=== PATIENT | female | born 1945 | race Asian ===

== ENCOUNTER → 2017-06-07 | Outpatient (CLI) | payer MEDICARE, OTHER ==
[~2017-06-07] MED LIST: ASPI-630 PO; CALC600T PO; CETI-203 PO; FOLI1TAB5 PO; HYDR12.53 PO; METF500T4 PO; NIFE5POW MC; OMEG300C PO; RALO60TA PO; VIT1CAPS10 PO
[2017-06-07 09:55] LABS: BASO % 0 % (0-3); EOS # 0.4 x10^3/uL (0.0-0.7); EOS % 6 % (0-3); HEMATOCRIT 41.8 % (36.0-47.0); HEMOGLOBIN 14.2 g/dL (12.0-15.5); LYMPH # 2.3 x10^3/uL (1.0-4.8); LYMPH % 35 % (24-48); MEAN CORPUSCULAR HEMOGLOBIN 32 pg (25-35); MEAN CORPUSCULAR HGB CONC 34 g/dL (31-37); MEAN CORPUSCULAR VOLUME 94 fL (79-100); MONO # 0.4 x10^3/uL (0.0-1.1); MONO % 6 % (0-9); NEUT # 3.6 x10^3uL (1.8-7.7); NEUT % 53 % (31-73); PLATELET COUNT 210 x10^3/uL (140-400); RED BLOOD COUNT 4.44 x10^6/uL (3.50-5.40); RED CELL DISTRIBUTION WIDTH 12.4 % (11.5-14.5); WHITE BLOOD COUNT 6.8 x10^3/uL (4.0-11.0)
[2017-06-07 10:02] LABS: ALBUMIN 3.8 g/dL (3.4-5.0); CALCIUM 10.2 mg/dL (8.5-10.1); GFR 54.7; POTASSIUM 4.2 mmol/L (3.5-5.1); TOTAL BILIRUBIN 0.4 mg/dL (0.2-1.0); TOTAL PROTEIN 7.6 g/dL (6.4-8.2)
== END | disposition home or self-care (01) ==
LOC: LAB 09:13
PROVIDERS: ATTEND Internal Medicine Gastroenterology
DX: K74.60 Unspecified cirrhosis of liver (principal)
CPT/HCPCS: 36415; 80053; 82105; 85025; 85610

== ENCOUNTER → 2017-08-14 | Outpatient (CLI) | payer MEDICARE, OTHER ==
--- NOTE | 2017-08-14 12:20 | RAD ---
Pelvic ultrasound to include transabdominal and transvaginal imaging 08/14/2017 Clinical history: Vaginal bleeding. Technique: Using the distended urinary bladder as a sonographic window, a real-time ultrasound examination of the pelvis was performed. Additionally in an attempt better evaluate the adnexa, a transvaginal ultrasound study was performed. Multiple images were obtained. Findings: Comparison study is dated 09/09/2016. The uterus is not visualized and system with patient's history of a hysterectomy. Neither ovary is visualized consistent with the patient's history of a bilateral oophorectomy. The urinary bladder is within normal limits. No adnexal mass is seen. No free fluid is noted. Impression: Negative postoperative pelvic ultrasound.
== END | disposition home or self-care (01) ==
LOC: US 09:09
PROVIDERS: ATTEND Nurse Practitioner Family
DX: N93.9 Abnormal uterine and vaginal bleeding, unspecified (principal); Z90.710 Acquired absence of both cervix and uterus
CPT/HCPCS: 76830; 76856

== ENCOUNTER → 2017-08-28 | Outpatient (CLI) | payer MEDICARE, OTHER ==
[~2017-08-28] MED LIST changes: +IOHEXOL 240 MG/ML 50ML VIAL. ONE; +IOHEXOL 300 MG/ML 75 ML VIAL. IV ONE
[2017-08-28 08:14] LABS: CREATININE 0.9 mg/dL (0.6-1.0); GFR 61.7
--- NOTE | 2017-08-28 09:11 | RAD ---
CT abdomen and pelvis with oral and intravenous contrast 08/28/2017 Clinical indication: Vaginal bleeding. Comparison: Pelvic ultrasound 08/14/2017, CT abdomen 09/23/2014. Technique: Multiple CT images of the abdomen and pelvis were obtained following the intravenous administration of 75 mL Omnipaque 300. PQRS Compliance Statement: One or more of the following individualized dose reduction techniques were utilized for this examination: 1. Automated exposure control 2. Adjustment of the mA and/or kV according to patient size 3. Use of iterative reconstruction technique Findings: Heart size is normal. Mild subpleural scarring in the visualized lung bases. There is mild diffuse hepatic steatosis. There is no significant change in subcentimeter hypodensities in both lobes of the liver, largest in hepatic segment 2 measuring 0.6 cm series 2/image 10. Additional hypodensities seen at the junctions of segment 4A/2 series 2/image 11, segment 7 series 2/image 11 and segment 4A series 2/oh image 13. Gallbladder, spleen, adrenal glands, pancreas and kidneys are unremarkable. Abdominal aorta is normal in caliber with moderate aortoiliac calcified atheromatous disease. No retroperitoneal or mesenteric lymphadenopathy. Small and large bowel loops are normal in caliber without obstruction. The appendix is normal in appearance. No abdominal free fluid or pneumoperitoneum. There is mild thickening of the urinary bladder wall, asymmetrically greater anteriorly. No destructive osseous lesions. Impression: 1. Prior hysterectomy with no CT evidence to account for patient's reported vaginal bleeding. Clinical correlation is recommended. 2. Mild anterior urinary bladder wall thickening which may be due to cystitis. Correlation with urinalysis is recommended. If there is concern for urothelial carcinoma, cystoscopy could be performed for further evaluation. 3. Hepatic steatosis with a few stable subcentimeter hepatic hypodensities, likely benign given stability since 2014.
== END | disposition home or self-care (01) ==
LOC: CT 07:28
PROVIDERS: ATTEND Nurse Practitioner Family
DX: N93.8 Other specified abnormal uterine and vaginal bleeding (principal); K76.0 Fatty (change of) liver, not elsewhere classified; Z90.710 Acquired absence of both cervix and uterus
CPT/HCPCS: 36415; 74177; 82565; 84520; Q9966; Q9967

== ENCOUNTER → 2017-08-31 | Day surgery (SDC) | payer MEDICARE, OTHER ==
[~2017-08-31] MED LIST changes: -IOHEXOL 240 MG/ML 50ML VIAL. ONE; -IOHEXOL 300 MG/ML 75 ML VIAL. IV ONE; +IV RINGERS SOLUTION,LACTATED 1,000 ML IV ONE; +LIDOCAINE 2% PF Vial for OR 5 ML VIAL. ONE; +PROPOFOL 40 ML IV ONE
== END | disposition home or self-care (01) ==
LOC: SURG 07:39
PROVIDERS: ATTEND Internal Medicine Gastroenterology
DX: Z09 Encounter for follow-up examination after completed treatment for conditions other than malignant neoplasm (principal); Z86.010 Personal history of colon polyps; I10 Essential (primary) hypertension; E11.9 Type 2 diabetes mellitus without complications; E78.00 Pure hypercholesterolemia, unspecified; E07.9 Disorder of thyroid, unspecified; Z90.710 Acquired absence of both cervix and uterus; Z88.0 Allergy status to penicillin
CPT/HCPCS: 45378; 82947; J2704; J7120; J2001

== ENCOUNTER → 2017-12-01 | Outpatient (CLI) | payer MEDICARE, OTHER ==
[~2017-12-01] MED LIST changes: -IV RINGERS SOLUTION,LACTATED 1,000 ML IV ONE; -LIDOCAINE 2% PF Vial for OR 5 ML VIAL. ONE; -PROPOFOL 40 ML IV ONE
[2017-12-01 09:13] LABS: BASO # 0.1 x10^3/uL (0.0-0.2); BASO % 1 % (0-3); EOS # 0.6 x10^3/uL (0.0-0.7); EOS % 8 % (0-3); HEMATOCRIT 39.3 % (36.0-47.0); HEMOGLOBIN 13.3 g/dL (12.0-15.5); LYMPH # 3.1 x10^3/uL (1.0-4.8); LYMPH % 42 % (24-48); MEAN CORPUSCULAR HEMOGLOBIN 32 pg (25-35); MEAN CORPUSCULAR HGB CONC 34 g/dL (31-37); MEAN CORPUSCULAR VOLUME 95 fL (79-100); MONO # 0.4 x10^3/uL (0.0-1.1); MONO % 5 % (0-9); NEUT # 3.4 x10^3uL (1.8-7.7); NEUT % 45 % (31-73); PLATELET COUNT 216 x10^3/uL (140-400); RED BLOOD COUNT 4.16 x10^6/uL (3.50-5.40); RED CELL DISTRIBUTION WIDTH 12.7 % (11.5-14.5); WHITE BLOOD COUNT 7.5 x10^3/uL (4.0-11.0)
[2017-12-01 09:24] LABS: ALBUMIN 3.5 g/dL (3.4-5.0); ALBUMIN/GLOBULIN RATIO 0.9 (1.0-1.7); CALCIUM 10.2 mg/dL (8.5-10.1); CREATININE 0.9 mg/dL (0.6-1.0); GFR 61.7; POTASSIUM 3.6 mmol/L (3.5-5.1); TOTAL BILIRUBIN 0.6 mg/dL (0.2-1.0); TOTAL PROTEIN 7.6 g/dL (6.4-8.2)
--- NOTE | 2017-12-01 12:30 | RAD ---
Abdominal ultrasound, 12/01/2017: History: Hepatic cirrhosis The gallbladder is within normal limits in size. There is no sonographic evidence of cholelithiasis. The gallbladder de dios are not thickened. The common hepatic duct is of normal caliber. The hepatic echogenicity is generally increased, most commonly due to fatty change. The liver measures 16 cm in craniocaudad extent at the level of the right lobe. No hepatic mass is seen. The spleen is of normal size. The pancreatic body is unremarkable. Other portions of the pancreas were obscured by overlying bowel. The abdominal aorta is not dilated. The inferior vena cava is unremarkable. No free fluid is evident in the abdomen. IMPRESSION: 1. Increased hepatic echogenicity suggesting hepatic steatosis. 2. No acute abdominal abnormality is detected.
== END | disposition home or self-care (01) ==
LOC: US 07:26
PROVIDERS: ATTEND Internal Medicine Gastroenterology
DX: K74.60 Unspecified cirrhosis of liver (principal); I10 Essential (primary) hypertension; E11.9 Type 2 diabetes mellitus without complications
CPT/HCPCS: 36415; 76700; 80053; 82105; 85025; 85610

== ENCOUNTER → 2018-02-01 | Day surgery (SDC) | payer MEDICARE, OTHER ==
[~2018-02-01] MED LIST changes: +COLE625T12 PO; +IV RINGERS SOLUTION,LACTATED 1,000 ML IV SCH; +LIDOCAINE 1% PF 2 ML VIAL. ID PRN; +LOSA100T6 PO; -METF500T4 PO; +METF500T5 PO; +MORPHINE SULFATE 2 MG/ML DISP.SYRIN. IV PRN; +PANT40TA5 PO; +PROPOFOL 10,000 MCG/ML (20ML) VIAL IV ONE; +PROPOFOL 20 ML IV ONE
[2018-02-01 13:43] VITALS: BP 134/79
== END ==
LOC: SURG 11:38
PROVIDERS: ATTEND Internal Medicine Gastroenterology
DX: K29.70 Gastritis, unspecified, without bleeding (principal); K21.9 Gastro-esophageal reflux disease without esophagitis; K44.9 Diaphragmatic hernia without obstruction or gangrene; K74.60 Unspecified cirrhosis of liver; Z90.710 Acquired absence of both cervix and uterus; Z98.890 Other specified postprocedural states; Z98.49 Cataract extraction status, unspecified eye
CPT/HCPCS: 43239; J2704; J7120

== ENCOUNTER → 2018-06-12 | Outpatient (CLI) | payer MEDICARE, OTHER ==
[2018-02-01 13:43] VITALS: BP 134/79
[~2018-06-12] MED LIST changes: -IV RINGERS SOLUTION,LACTATED 1,000 ML IV SCH; -LIDOCAINE 1% PF 2 ML VIAL. ID PRN; -LOSA100T6 PO; +LOSA100T7 PO; +METF500T16 PO; -METF500T5 PO; -MORPHINE SULFATE 2 MG/ML DISP.SYRIN. IV PRN; -PROPOFOL 10,000 MCG/ML (20ML) VIAL IV ONE; -PROPOFOL 20 ML IV ONE
[2018-06-12 10:31] LABS: BASO % 0 % (0-3); EOS # 0.2 x10^3/uL (0.0-0.7); EOS % 4 % (0-3); HEMATOCRIT 37.2 % (36.0-47.0); HEMOGLOBIN 12.4 g/dL (12.0-15.5); LYMPH # 1.7 x10^3/uL (1.0-4.8); LYMPH % 32 % (24-48); MEAN CORPUSCULAR HEMOGLOBIN 31 pg (25-35); MEAN CORPUSCULAR HGB CONC 33 g/dL (31-37); MEAN CORPUSCULAR VOLUME 93 fL (79-100); MONO # 0.3 x10^3/uL (0.0-1.1); MONO % 6 % (0-9); NEUT # 3.1 x10^3uL (1.8-7.7); NEUT % 58 % (31-73); PLATELET COUNT 236 x10^3/uL (140-400); RED CELL DISTRIBUTION WIDTH 12.9 % (11.5-14.5); WHITE BLOOD COUNT 5.3 x10^3/uL (4.0-11.0)
--- NOTE | 2018-06-12 13:31 | RAD ---
Abdominal ultrasound, 06/12/2018: HISTORY: Hepatic cirrhosis The gallbladder is within normal limits in size. There is no sonographic evidence of cholelithiasis. The gallbladder de dios are not thickened. The common hepatic duct measures 6-7 mm which is at the upper limits of normal. The liver is enlarged measuring 20 cm in craniocaudad extent at the level the right lobe. It demonstrates increased echogenicity in a diffuse pattern most compatible with fatty change. No hepatic mass or intrahepatic bile duct dilatation is seen. The visualized portions of the pancreas and both kidneys are unremarkable. The spleen is of normal size. There is aortic calcific plaquing without evidence of aneurysm. The visualized portions of the inferior vena cava are unremarkable. No free fluid is evident in the abdomen. IMPRESSION: 1. Hepatomegaly with increased hepatic echogenicity compatible with hepatic steatosis. 2. The common hepatic duct is at the upper limits of normal in size without evidence of intrahepatic bile duct dilatation. Correlation with laboratory data is suggested in determining the significance of this finding. Electronically signed by: Gomez Pond MD (06/12/2018 1:28 PM) [facility], [place]
== END | disposition home or self-care (01) ==
LOC: US 07:43
PROVIDERS: ATTEND Internal Medicine Gastroenterology
DX: K74.60 Unspecified cirrhosis of liver (principal); R16.0 Hepatomegaly, not elsewhere classified; Z88.0 Allergy status to penicillin
CPT/HCPCS: 36415; 76700; 85025

== ENCOUNTER → 2019-01-14 | Outpatient (CLI) | payer MEDICARE, OTHER ==
[2018-02-01 13:43] VITALS: BP 134/79
[~2019-01-14] MED LIST changes: +CENTRUM CHEWAB1 EACH PO; -FOLI1TAB5 PO; -HYDR12.53 PO; +HYDR12.572 PO; +LOSA100T14 PO; -LOSA100T7 PO
--- NOTE | 2019-01-14 08:29 | RAD ---
Ultrasound of the abdomen 01/14/2019 CLINICAL HISTORY: [place]. TECHNIQUE: A real-time ultrasound examination of the abdomen was performed. Multiple images were obtained. FINDINGS: Comparison study is dated 06/12/2018. Additional comparison is made to a CT scan of the abdomen and pelvis dated 08/28/2017. The gallbladder is well-distended. No gallstones are visualized. The gallbladder wall thickness is within normal limits. No pericholecystic fluid is seen. THe common bile duct measures 5 mm in diameter which is within normal limits. The liver is mildly enlarged measuring 20.1 cm in length. Increased echogenicity of the liver parenchyma is seen consistent with fatty infiltration. A small area of focal fatty sparing is seen within the liver near the gallbladder which measures 2 cm in greatest diameter. This does not appear significantly changed. The visualized portions of pancreas, the spleen and both kidneys are within normal limits. Atherosclerotic calcification of the abdominal aorta is seen. The abdominal aorta tapers normally. The inferior vena cava is within normal limits. No free fluid is seen. IMPRESSION: Mild hepatomegaly with fatty infiltration of the liver, unchanged. No acute abnormality is seen. Electronically signed by: Nicho Porras MD (01/14/2019 8:26 AM) [email or web address]
== END | disposition home or self-care (01) ==
LOC: US 07:25
PROVIDERS: ATTEND Internal Medicine Gastroenterology
DX: K76.0 Fatty (change of) liver, not elsewhere classified (principal); I70.0 Atherosclerosis of aorta; R16.0 Hepatomegaly, not elsewhere classified
CPT/HCPCS: 76700

== ENCOUNTER → 2019-01-15 | Outpatient (CLI) | payer MEDICARE, OTHER ==
[2018-02-01 13:43] VITALS: BP 134/79
[2019-01-15 09:11] LABS: BASO # 0.1 x10^3/uL (0.0-0.2); BASO % 1 % (0-3); EOS # 0.4 x10^3/uL (0.0-0.7); EOS % 6 % (0-3); HEMATOCRIT 35.5 % (36.0-47.0); HEMOGLOBIN 11.4 g/dL (12.0-15.5); LYMPH # 2.6 x10^3/uL (1.0-4.8); LYMPH % 41 % (24-48); MEAN CORPUSCULAR HEMOGLOBIN 28 pg (25-35); MEAN CORPUSCULAR HGB CONC 32 g/dL (31-37); MEAN CORPUSCULAR VOLUME 86 fL (79-100); MONO # 0.5 x10^3/uL (0.0-1.1); MONO % 8 % (0-9); NEUT # 2.8 x10^3uL (1.8-7.7); NEUT % 44 % (31-73); PLATELET COUNT 297 x10^3/uL (140-400); RED BLOOD COUNT 4.12 x10^6/uL (3.50-5.40); RED CELL DISTRIBUTION WIDTH 14.6 % (11.5-14.5); WHITE BLOOD COUNT 6.3 x10^3/uL (4.0-11.0)
[2019-01-15 09:43] LABS: ALBUMIN 3.6 g/dL (3.4-5.0); ALBUMIN/GLOBULIN RATIO 0.9 (1.0-1.7); CALCIUM 9.4 mg/dL (8.5-10.1); CREATININE 1.1 mg/dL (0.6-1.0); GFR 48.8; POTASSIUM 4.4 mmol/L (3.5-5.1); TOTAL BILIRUBIN 0.5 mg/dL (0.2-1.0); TOTAL PROTEIN 7.7 g/dL (6.4-8.2)
== END | disposition home or self-care (01) ==
LOC: LAB 07:45
PROVIDERS: ATTEND Internal Medicine Gastroenterology
DX: K75.81 Nonalcoholic steatohepatitis (NASH) (principal); K74.60 Unspecified cirrhosis of liver
CPT/HCPCS: 36415; 80053; 82105; 85025; 85610

== ENCOUNTER → 2019-02-05 | Outpatient (CLI) | payer MEDICARE, OTHER ==
[2018-02-01 13:43] VITALS: BP 134/79
--- NOTE | 2019-02-05 12:27 | CARD ---
MR#: [id number] Date of Study: 02/05/2019 Ordering Physician: AASHISH MILLIGAN, Referring Physician: AASHISH MILLIGAN, Tech: Marisol Woods CECIL APPROVED REPORT EXAM: Two-dimensional and M-mode echocardiogram with Doppler and color Doppler. Other Information Quality : Good INDICATION Tachycardia 2D DIMENSIONS RVDd2.4 (2.9-3.5cm)Left Atrium(2D)3.4 (1.6-4.0cm) IVSd0.8 (0.7-1.1cm)Aortic Root(2D)2.4 (2.0-3.7cm) LVDd4.5 (3.9-5.9cm)LVOT Diameter2.0 (1.8-2.4cm) PWd0.8 (0.7-1.1cm)LVDs2.8 (2.5-4.0cm) FS (%) 38.0 %SV61.7 ml LVEF(%)60.0 (>50%) Aortic Valve AoV Peak Alexei.136.8cm/sAoV VTI21.2cm AO Peak GR.7.5mmHgLVOT Peak Alexei.128.7cm/s LVOT VTI 21.43cmAO Mean GR.4mmHg DAVID (VMAX)2.99en2HBV (VTI)3.03cm2 Mitral Valve MV E Yhndjtqg79.1cm/sMV DECEL XHFI487bu MV A Povfypon442.0cm/sE/A Ratio0.7 Pulmonary Vein S1 Kboeawye37.4cm/sD2 Ctdtzkeq90.9cm/s LEFT VENTRICLE The left ventricle is normal size. Proximal septal thickening is noted. The left ventricular systolic function is normal and the ejection fraction is within normal range. The Ejection Fraction is 60-65% . There is normal LV segmental wall motion. Transmitral Doppler flow pattern is Grade I-abnormal rela xation pattern. RIGHT VENTRICLE The right ventricle is normal size. The right ventricular systolic function is normal. ATRIA The left atrium size is normal. The right atrium size is normal. The interatrial septum is intact wit h no evidence for an atrial septal defect or patent foramen ovale as noted on 2-D or Doppler imaging. AORTIC VALVE The aortic valve is calcified but opens well. Doppler and Color Flow revealed no significant aortic r egurgitation. There is no significant aortic valvular stenosis. MITRAL VALVE The mitral valve is calcified but opens well. There is no evidence of mitral valve prolapse. There is no mitral valve stenosis. Doppler and Color Flow revealed no mitral valve regurgitation noted. TRICUSPID VALVE The tricuspid valve is normal in structure and function. Doppler and Color Flow revealed trace tricus pid regurgitation. There is no tricuspid valve stenosis. PULMONIC VALVE The pulmonic valve is not well visualized. Doppler and Color Flow revealed no pulmonic valvular regur gitation. There is no pulmonic valvular stenosis. GREAT VESSELS The aortic root is normal in size. The ascending aorta is normal in size. The IVC was not visualized. PERICARDIAL EFFUSION There is no evidence of significant pericardial effusion. Critical Notification Critical Value: No <Conclusion> The left ventricle is normal size. The left ventricular systolic function is normal and the ejection fraction is within normal range. The Ejection Fraction is 60-65%. There is no significant aortic valvular stenosis. Doppler and Color Flow revealed no significant aortic regurgitation. Doppler and Color Flow revealed no mitral valve regurgitation noted. Doppler and Color Flow revealed trace tricuspid regurgitation. Signed by : Matheus Sotelo MD Electronically Approved : 02/05/2019 12:27:17
== END | disposition home or self-care (01) ==
LOC: ECHO 10:18
PROVIDERS: ATTEND Family Medicine
DX: R01.2 Other cardiac sounds (principal); I70.0 Atherosclerosis of aorta; R00.8 Other abnormalities of heart beat
CPT/HCPCS: 93306

== ENCOUNTER → 2019-08-06 | Outpatient (CLI) | payer MEDICARE, OTHER ==
[2018-02-01 13:43] VITALS: BP 134/79
[2019-08-06 10:06] LABS: BASO # 0.1 x10^3/uL (0.0-0.2); BASO % 2 % (0-3); EOS # 0.2 x10^3/uL (0.0-0.7); EOS % 2 % (0-3); HEMOGLOBIN 10.6 g/dL (12.0-15.5); LYMPH % 29 % (24-48); MEAN CORPUSCULAR HEMOGLOBIN 25 pg (25-35); MEAN CORPUSCULAR HGB CONC 32 g/dL (31-37); MEAN CORPUSCULAR VOLUME 79 fL (79-100); MONO # 0.6 x10^3/uL (0.0-1.1); MONO % 8 % (0-9); NEUT % 58 % (31-73); PLATELET COUNT 303 x10^3/uL (140-400); RED BLOOD COUNT 4.19 x10^6/uL (3.50-5.40); RED CELL DISTRIBUTION WIDTH 15.6 % (11.5-14.5); WHITE BLOOD COUNT 6.9 x10^3/uL (4.0-11.0)
[2019-08-06 10:14] LABS: ALBUMIN 3.7 g/dL (3.4-5.0); ALBUMIN/GLOBULIN RATIO 0.8 (1.0-1.7); CALCIUM 9.1 mg/dL (8.5-10.1); CREATININE 1.1 mg/dL (0.6-1.0); GFR 48.7; POTASSIUM 4.4 mmol/L (3.5-5.1); TOTAL BILIRUBIN 0.5 mg/dL (0.2-1.0); TOTAL PROTEIN 8.3 g/dL (6.4-8.2)
--- NOTE | 2019-08-06 16:07 | RAD ---
ABDOMEN COMPLETE History: Cirrhosis Comparison: January 14, 2019 Findings: Multiple sonographic images of the abdomen are submitted. Gallbladder is present without intraluminal abnormality, wall thickening, pericholecystic fluid. There is diffuse coarsening of the hepatic echotexture, no focal hepatic mass demonstrated. Right lobe of the liver measured 16.8 cm longitudinal. Right kidney measured up to 10.5 x 4.3 x 4.7 cm, no hydronephrosis. Left kidney measured 10.5 x 5.15 4.1 cm, no hydronephrosis. Pancreas is not well-visualized on this exam due to bowel gas. There is limited segmental visualization of the inferior vena cava. Abdominal aortic caliber is within normal limits. Spleen measured up 8.6 cm, not enlarged. No free fluid is demonstrated. Impression: 1. There is diffuse coarsening of the hepatic echotexture most commonly due to steatosis although may be seen with other hepatocellular disease. Otherwise no other abnormality is demonstrated. Electronically signed by: Matthew Jean-Baptiste MD (08/06/2019 4:04 PM) [email or web address]
== END | disposition home or self-care (01) ==
LOC: US 09:04
PROVIDERS: ATTEND Internal Medicine Gastroenterology
DX: K74.60 Unspecified cirrhosis of liver (principal)
CPT/HCPCS: 36415; 76700; 80053; 82105; 85025; 85610

== ENCOUNTER → 2020-01-20 | Outpatient (CLI) | payer MEDICARE, OTHER ==
[2018-02-01 13:43] VITALS: BP 134/79
--- NOTE | 2020-01-20 08:51 | RAD ---
Right upper quadrant abdominal ultrasound Indication: Nonalcoholic steatohepatitis. Cirrhosis of liver. Comparison: Complete abdominal ultrasound 08/06/2019. Technique: Transabdominal ultrasound images are obtained. Findings: The pancreas is not well-visualized due to overlying bowel gas. Liver is mildly increased in echogenicity. Right hepatic lobe measures 17.4 cm. Portal flow is hepatopedal. Gallbladder has an unremarkable appearance. Common bile duct caliber is normal measuring 4 mm in diameter. The right kidney measures 10.5 cm in length. There is no hydronephrosis. IVC is unremarkable. IMPRESSION: The liver is mildly increased in echogenicity. Common etiology is fatty infiltration. Electronically signed by: Ervin Liu MD (01/20/2020 8:48 AM) [id number]
[2020-01-20 09:11] LABS: BASO # 0.1 x10^3/uL (0.0-0.2); BASO % 1 % (0-3); EOS # 0.3 x10^3/uL (0.0-0.7); EOS % 4 % (0-3); HEMATOCRIT 32.5 % (36.0-47.0); LYMPH # 2.4 x10^3/uL (1.0-4.8); LYMPH % 38 % (24-48); MEAN CORPUSCULAR HEMOGLOBIN 25 pg (25-35); MEAN CORPUSCULAR HGB CONC 31 g/dL (31-37); MEAN CORPUSCULAR VOLUME 81 fL (79-100); MONO # 0.5 x10^3/uL (0.0-1.1); MONO % 8 % (0-9); NEUT # 3.1 x10^3uL (1.8-7.7); NEUT % 49 % (31-73); PLATELET COUNT 291 x10^3/uL (140-400); RED BLOOD COUNT 4.03 x10^6/uL (3.50-5.40); RED CELL DISTRIBUTION WIDTH 16.6 % (11.5-14.5); WHITE BLOOD COUNT 6.4 x10^3/uL (4.0-11.0)
[2020-01-20 09:56] LABS: ALBUMIN 3.5 g/dL (3.4-5.0); ALBUMIN/GLOBULIN RATIO 0.9 (1.0-1.7); CREATININE 1.1 mg/dL (0.6-1.0); GFR 48.7; POTASSIUM 4.3 mmol/L (3.5-5.1); TOTAL BILIRUBIN 0.4 mg/dL (0.2-1.0); TOTAL PROTEIN 7.5 g/dL (6.4-8.2)
== END ==
LOC: US 07:51
PROVIDERS: ATTEND Internal Medicine Gastroenterology
DX: K76.0 Fatty (change of) liver, not elsewhere classified (principal); K74.60 Unspecified cirrhosis of liver
CPT/HCPCS: 36415; 76705; 80053; 82105; 85025; 85610

== ENCOUNTER → 2020-07-30 | Outpatient (CLI) | payer MEDICARE, OTHER ==
[2018-02-01 13:43] VITALS: BP 134/79
[~2020-07-30] MED LIST changes: -PANT40TA5 PO; +PANT40TA6 PO
--- NOTE | 2020-07-30 09:50 | RAD ---
US ABDOMEN COMPLETE: 07/30/2020 8:45 AM Indication: 75 years old Female. Cirrhosis. Comparison: None. TECHNIQUE: Sonographic evaluation of the abdomen is performed utilizing grayscale and color Doppler. FINDINGS: Liver: There is coarsened echotexture suggestive of micronodular morphology associated with cirrhosis . Increased echogenicity of the hepatic parenchyma suggestive of hepatocellular disease, most commonl y hepatic steatosis. Findings Limited evaluation for hepatic masses. There is hepatopedal flow within the portal venous system. Right hepatic lobe measures 16.7 cm. Biliary system: CBD measures 4.3 mm. There is no intrahepatic or extrahepatic biliary dilatation. Gallbladder: There is an adherent stone versus gallbladder polyp measuring 6 mm. No gallbladder wall thickening or pericholecystic fluid. Sonographic Mayes sign: Negative Pancreas: Visualized head and uncinate process are unremarkable. Body and tail are not visualized. Spleen: 9.6 cm. Right kidney: 9.9 x 4.2 x 4.2 cm. No hydronephrosis. Normal echotexture without focal mass or renal c alculus. Left kidney: 10.1 x 3.9 x 4.3 cm. No hydronephrosis. Normal echotexture without focal mass or renal c alculus. Abdominal aorta and IVC: Visualized portions unremarkable. Free fluid:None. IMPRESSION: 1. There is no degenerative Stone versus gallbladder polyp measuring 6 mm. No sonographic evidence fo r acute cholecystitis. Recommend six-month follow-up right upper quadrant abdominal ultrasound. 2. Cirrhosis. Increased echogenicity of the hepatic parenchyma suggestive of hepatic steatosis. This symptoms evaluation for hepatic masses. Further catheterization with abdominal MRI with and without c ontrast could be of benefit. Electronically signed by: Olinda Moran MD (07/30/2020 9:48 AM) [email or web address]
[2020-07-30 11:38] LABS: BASO # 0.1 x10^3/uL (0.0-0.2); BASO % 1 % (0-3); EOS # 0.2 x10^3/uL (0.0-0.7); EOS % 2 % (0-3); HEMATOCRIT 34.4 % (36.0-47.0); HEMOGLOBIN 10.5 g/dL (12.0-15.5); LYMPH # 2.4 x10^3/uL (1.0-4.8); LYMPH % 30 % (24-48); MEAN CORPUSCULAR HEMOGLOBIN 25 pg (25-35); MEAN CORPUSCULAR HGB CONC 30 g/dL (31-37); MEAN CORPUSCULAR VOLUME 81 fL (79-100); MONO # 0.4 x10^3/uL (0.0-1.1); MONO % 5 % (0-9); NEUT % 62 % (31-73); PLATELET COUNT 242 x10^3/uL (140-400); RED BLOOD COUNT 4.25 x10^6/uL (3.50-5.40); RED CELL DISTRIBUTION WIDTH 17.1 % (11.5-14.5); WHITE BLOOD COUNT 8.1 x10^3/uL (4.0-11.0)
[2020-07-30 11:40] LABS: ALBUMIN 3.8 g/dL (3.4-5.0); ALBUMIN/GLOBULIN RATIO 0.9 (1.0-1.7); CALCIUM 8.6 mg/dL (8.5-10.1); CREATININE 1.2 mg/dL (0.6-1.0); GFR 43.9; POTASSIUM 4.2 mmol/L (3.5-5.1); TOTAL BILIRUBIN 0.5 mg/dL (0.2-1.0); TOTAL PROTEIN 8.1 g/dL (6.4-8.2)
== END ==
LOC: US 07:44
PROVIDERS: ATTEND Internal Medicine Gastroenterology
DX: K74.60 Unspecified cirrhosis of liver (principal)
CPT/HCPCS: 36415; 76700; 80053; 82105; 85025; 85610

== ENCOUNTER → 2021-03-15 | Outpatient (CLI) | payer MEDICARE, OTHER ==
[2018-02-01 13:43] VITALS: BP 134/79
[2021-03-15 10:37] LABS: BASO # 0.1 x10^3/uL (0.0-0.2); BASO % 1 % (0-3); EOS # 0.2 x10^3/uL (0.0-0.7); EOS % 3 % (0-3); HEMATOCRIT 37.4 % (36.0-47.0); HEMOGLOBIN 12.5 g/dL (12.0-15.5); LYMPH # 2.7 x10^3/uL (1.0-4.8); LYMPH % 44 % (24-48); MEAN CORPUSCULAR HEMOGLOBIN 30 pg (25-35); MEAN CORPUSCULAR HGB CONC 33 g/dL (31-37); MEAN CORPUSCULAR VOLUME 90 fL (79-100); MONO # 0.4 x10^3/uL (0.0-1.1); MONO % 7 % (0-9); NEUT # 2.9 x10^3uL (1.8-7.7); NEUT % 46 % (31-73); PLATELET COUNT 220 x10^3/uL (140-400); RED BLOOD COUNT 4.17 x10^6/uL (3.50-5.40); RED CELL DISTRIBUTION WIDTH 17.1 % (11.5-14.5); WHITE BLOOD COUNT 6.3 x10^3/uL (4.0-11.0)
[2021-03-15 12:29] LABS: ALBUMIN 3.7 g/dL (3.4-5.0); ALBUMIN/GLOBULIN RATIO 0.9 (1.0-1.7); CALCIUM 8.8 mg/dL (8.5-10.1); GFR 54.2; POTASSIUM 4.1 mmol/L (3.5-5.1); TOTAL BILIRUBIN 0.4 mg/dL (0.2-1.0); TOTAL PROTEIN 7.6 g/dL (6.4-8.2)
--- NOTE | 2021-03-15 13:09 | RAD ---
EXAM: RIGHT UPPER QUADRANT ULTRASOUND. HISTORY: Cirrhosis. COMPARISON: 07/30/2020. FINDINGS: Sonographic evaluation of the right upper quadrant was performed. Mild hepatic surface nodularity is consistent with cirrhotic change. No focal hepatic lesions are matthias ntified sonographically. There are no focal lesions. An echogenic nonshadowing focus in the gallbladder neck measures 7 x 3 mm and may reflect a polyp or external. It appears 1 mm larger than on the prior study. There is no sonographic Mayes sign. The c ommon duct measures 5 mm. The visualized portions of the head and body of the pancreas reveal no abno rmality. The right kidney measures 9.4 cm. Cortical thickness and echogenicity are preserved. There is no hydr onephrosis. The visualized portions of the abdominal aorta and inferior vena cava are grossly patent and normal i n caliber. IMPRESSION: 1. Mild morphologic changes of cirrhosis. No suspicious hepatic lesions. 2. A 7 mm gallstone versus polyp appears larger. Attention on ongoing follow-up is recommended. Electronically signed by: Jina Chaves MD (03/15/2021 1:07 PM) [id number]
== END ==
LOC: US 08:51
PROVIDERS: ATTEND Internal Medicine Gastroenterology
DX: K74.60 Unspecified cirrhosis of liver (principal); N28.89 Other specified disorders of kidney and ureter
CPT/HCPCS: 36415; 76705; 80053; 82105; 85025; 85610

== ENCOUNTER → 2021-09-20 | Outpatient (CLI) | payer MEDICARE, OTHER ==
[2018-02-01 13:43] VITALS: BP 134/79
[~2021-09-20] MED LIST changes: -COLE625T12 PO; +COLE625T29 PO
--- NOTE | 2021-09-20 09:54 | RAD ---
EXAM: Abdomen sonogram. HISTORY: Cirrhosis. TECHNIQUE: Sonographic imaging of the abdomen was performed. COMPARISON: 03/15/2021. FINDINGS: There is coarse hepatic echotexture and hepatic surface nodularity due to cirrhosis. No foc al hepatic lesion is seen. The liver is normal in size. There is suspected superimposed hepatic steat osis. The gallbladder wall is normal in thickness. There is a stable 7 mm nonmobile echogenic lesion along the gallbladder wall. The common bile duct is normal in caliber. The right kidney, pancreas and inferior vena cava are unremarkable. IMPRESSION: 1. Hepatic cirrhosis with suspected superimposed steatosis. Note is made that MRI is more sensitive f or small lesions in the setting of cirrhosis. 2. Stable 7 mm gallbladder polyp or nonmobile gallstone. Continued follow-up is recommended. Electronically signed by: Carlie Zuluaga MD (09/20/2021 9:51 AM) [id number]
[2021-09-20 10:19] LABS: BASO % 1 % (0-3); EOS # 0.2 x10^3/uL (0.0-0.7); EOS % 4 % (0-3); HEMATOCRIT 39.7 % (36.0-47.0); HEMOGLOBIN 13.1 g/dL (12.0-15.5); LYMPH # 1.7 x10^3/uL (1.0-4.8); LYMPH % 25 % (24-48); MEAN CORPUSCULAR HEMOGLOBIN 31 pg (25-35); MEAN CORPUSCULAR HGB CONC 33 g/dL (31-37); MEAN CORPUSCULAR VOLUME 95 fL (79-100); MONO # 0.3 x10^3/uL (0.0-1.1); MONO % 5 % (0-9); NEUT # 4.5 x10^3uL (1.8-7.7); NEUT % 66 % (31-73); PLATELET COUNT 244 x10^3/uL (140-400); RED CELL DISTRIBUTION WIDTH 12.9 % (11.5-14.5); WHITE BLOOD COUNT 6.8 x10^3/uL (4.0-11.0)
[2021-09-20 10:35] LABS: ALBUMIN 3.9 g/dL (3.4-5.0); ALBUMIN/GLOBULIN RATIO 0.8 (1.0-1.7); CALCIUM 9.5 mg/dL (8.5-10.1); GFR 54.1; POTASSIUM 4.5 mmol/L (3.5-5.1); TOTAL BILIRUBIN 0.5 mg/dL (0.2-1.0); TOTAL PROTEIN 8.5 g/dL (6.4-8.2)
== END ==
LOC: US 08:48
PROVIDERS: ATTEND Internal Medicine Gastroenterology
DX: K74.60 Unspecified cirrhosis of liver (principal)
CPT/HCPCS: 36415; 76705; 80053; 82105; 85025; 85610